=== PATIENT | male | born 1980 | race Caucasian/White ===

== ENCOUNTER 2017-06-26 16:24 | Emergency (ER) | payer OTHER ==
[2017-06-26] MEDS: HYDROcodone/APAP 5/325MG 1 TAB TABLET PO (19:36)
[2017-06-26] MEDS: SMZ/TMP 800/160MG TABLET. PO (20:07)
== END 2017-06-26 20:10 | disposition home or self-care (01) ==
LOC: ER 16:24
DX: S69.92XA Unspecified injury of left wrist, hand and finger(s), initial encounter (principal); I96 Gangrene, not elsewhere classified; K21.9 Gastro-esophageal reflux disease without esophagitis; F17.220 Nicotine dependence, chewing tobacco, uncomplicated; W23.0XXA Caught, crushed, jammed, or pinched between moving objects, initial encounter; Y93.89 Activity, other specified; Y92.89 Other specified places as the place of occurrence of the external cause; Y99.8 Other external cause status
CPT/HCPCS: 99283